=== PATIENT | male | born 1995 | race Caucasian/White ===

== ENCOUNTER 2023-10-02 22:24 | Emergency (ER) | payer OTHER ==
[2023-10-02 22:39] VITALS: TEMP 97.9
[2023-10-02] MEDS: IBUPROFEN 600 MG TAB PO STA (22:57)
[2023-10-02] MEDS: DIPH,PERTUS(ACELL)TETVAC-LF 0.5 ML VIAL IM ONE (22:58)
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
[2023-10-02] MEDS: ceFAZolin 1,000 MG VIAL (IM USE) IM STA (23:32)
[2023-10-02] MEDS: ACET/COD 300 MG/30 MG STARTER PACK 6 TAB BTL PO STA (23:32)
[2023-10-02 23:43] VITALS: BP 130/73; PULSE 78; RESP 18
--- NOTE | 2023-10-03 01:46 | XR ---
EXAM: XR Left Fingers, 2 or More Views CLINICAL HISTORY: ITS.REASON XR Reason: laceration TECHNIQUE: Frontal, lateral and oblique views of the fingers of the left hand. COMPARISON: No relevant prior studies available. IMPRESSION: There is a comminuted fracture of the distal tip of the first phalanx.
== END 2023-10-03 00:09 | disposition home or self-care (01) ==
LOC: EC 22:24
DX: S62.522B Displaced fracture of distal phalanx of left thumb, initial encounter for open fracture (principal); F17.200 Nicotine dependence, unspecified, uncomplicated; Z23 Encounter for immunization; W20.8XXA Other cause of strike by thrown, projected or falling object, initial encounter
CPT/HCPCS: 73140; 90715; 99283; 96372; 90471; J0690